=== PATIENT | female | born 1995 | race Caucasian/White ===

== ENCOUNTER 2016-07-05 14:56 | Emergency (ER) | payer OTHER ==
[2016-07-05 15:01] VITALS: BP 118/73; PULSE 75; TEMP 97.7; BMI 23.8
[2016-07-05] MEDS ORDERED: CYCLOBENZAPRINE HCL 10 MG TABLET (FP) PO ONE (16:05)
[2016-07-05] MEDS ORDERED: IBUPROFEN 400 MG TABLET (FP) PO ONE ×2 (16:05→16:06)
[2016-07-05] MEDS ORDERED: CYCLOBENZAPRINE HCL 10 MG TABLET (FP) ONE (16:06)
--- NOTE | 2016-07-05 16:12 | PDOC ---
History of Present Illness - General Chief Complaint: Pain Stated Complaint: PAIN Time Seen by Provider: 07/05/16 15:17 History Source: Patient Exam Limitations: No Limitations - History of Present Illness Initial Comments: 07/05/16 16:06 Chief complaint: Cough, nasal congestion, and lower back pain History of present illness: Pt. is a 21-year-old female with h/o asthma here today with report of having a productive cough greenish sputum 1 month and nasal congestion. Patient also reports having lower back pain intermittent times one month. Patient denies any radiation of pain down the legs or any numbness of legs or any incontinency or any saddle anesthesia. Patient denies any shortness of breath or any wheezing. Patient denies any fever. Patient reports that she started on Zyrtec and a Z-Leeroy 3 days ago however she continues to have a cough and slight nasal congestion. Patient has not been taking anything for her lower back pain. Patient denies any heavy lifting or injury to her lower back. SHe denies any recent travel. Patient reports that back pain currently as a 5 out of 10 with movement. She denies any wheezing or shortness of breath. She reports having an IUD however did not have her menstrual cycle in May. 07/05/16 16:12 07/05/16 16:15 Timing/Duration: intermittent (one month ) Severity: moderate Associated Symptoms: reports: cough (productive greenish sputa), other (nasal congestion, lower back pain ). denies: fever/chills Past History - Past Medical History Allergies/Adverse Reactions: Allergies Allergy/AdvReac Type Severity Reaction Status Date / Time blueberry Allergy Verified 07/05/16 15:01 Home Medications: Ambulatory Orders Cyclobenzaprine HCl [Flexeril -] 10 mg PO Q8H PRN #20 tablet MDD 3 07/05/16 Guaifenesin Dm [Mucinex Dm -] 1 tab PO Q12H PRN #10 tab.er.12h 07/05/16 Asthma: Yes - Reproductive History (#): 0 Para: 0 - Psycho/Social/Smoking Cessation Hx Anxiety: No Suicidal Ideation: No Smoking History: Never smoked Information on smoking cessation initiated: No Hx Alcohol Use: No Drug/Substance Use Hx: No Substance Use Type: None Review of Systems - Review of Systems Able to Perform ROS?: Yes Constitutional: No: Symptoms Reported HEENTM: Yes: Nose Congestion Respiratory: Yes: Productive cough (greenish for one month). No: Shortness of Breath, SOB with Exertion, SOB at Rest, Wheezing Cardiac (ROS): No: Symptoms Reported ABD/GI: No: Symptoms Reported Musculoskeletal: Yes: Back Pain (b/l lower back ) Integumentary: No: Symptoms Reported Neurological: No: Symptoms reported *Physical Exam - Vital Signs Last Vital Signs Temp Pulse Resp BP Pulse Ox 97.7 F 75 18 118/73 100 07/05/16 14:58 07/05/16 14:58 07/05/16 14:58 07/05/16 14:58 07/05/16 14:58 - Physical Exam General Appearance: Yes: Appropriately Dressed HEENT: positive: Nasal Congestion. negative: TMs Normal, Pharyngeal Erythema, Tonsillar Exudate, Tonsillar Erythema, Rhinorrhea Neck: negative: Lymphadenopathy (R), Lymphadenopathy (L) Respiratory/Chest: positive: Lungs Clear, Normal Breath Sounds. negative: Chest Tender, Respiratory Distress Cardiovascular: positive: Regular Rhythm, Regular Rate, S1, S2 Musculoskeletal: positive: Normal Inspection, Muscle Spasm (paraspinal muscles b /l lumbar with tenderness), Other. negative: CVA Tenderness, CVA Tenderness (R) , CVA Tenderness (L), Decreased Range of Motion Integumentary: positive: Normal Color Neurologic: positive: Alert, Normal Response, Motor Strength 5/5 (legs ), Respond to painful stimul, Responsive. negative: Sensory Deficit (legs ) ED Treatment Course - ADDITIONAL ORDERS Additional order review: Laboratory Results 07/05/16 15:38 Urine HCG, Qual Negative Medical Decision Making - Medical Decision Making 07/05/16 16:09 07/05/16 16:16 Pt. is a 21-year-old female with h/o asthma here today with report of having a productive cough greenish sputum 1 month and nasal congestion. Patient also reports having lower back pain intermittent times one month. Patient denies any radiation of pain down the legs or any numbness of legs or any incontinency or any saddle anesthesia. Patient denies any shortness of breath or any wheezing. Patient denies any fever. Patient reports that she started on Zyrtec and a Z- Leeroy 3 days ago however she continues to have a cough and slight nasal congestion. Patient has not been taking anything for her lower back pain. Patient denies any heavy lifting or injury to her lower back. SHe denies any recent travel. Patient reports that back pain currently as a 5 out of 10 with movement. She denies any wheezing or shortness of breath. She reports having an IUD however did not have her menstrual cycle in May. Bronchitis Nasal congestion Lower back pain with muscle spasm Plan: Urine hCG negative Ibuprofen 400 mg by mouth now than every 6 hrs prn pain Flexeril 10 mg by mouth now then every 8 hours as needed for muscle spasm mucinex DM 1 tab q12 hrs prn pain # 10 tabs 07/05/16 20:09 *DC/Admit/Observation/Transfer Diagnosis at time of Disposition: Bronchitis, Nasal congestion, Back pain, lumbosacral - Discharge Dispostion Disposition: HOME Condition at time of disposition: Stable - Prescriptions Prescriptions: Cyclobenzaprine HCl [Flexeril -] 10 mg PO Q8H PRN #20 tablet MDD 3 PRN Reason: Muscle Spasms Guaifenesin Dm [Mucinex Dm -] 1 tab PO Q12H PRN #10 tab.er.12h PRN Reason: Cough - Referrals Referrals: Graciela Maxwell NP [Primary Care Provider] - - Patient Instructions Additional Instructions: Finish medication as ordered previously by your primary care provider Take ibuprofen as directed by carpenter refrigerator as needed for pain Return to emergency room if any radiation of pain down the legs or any numbness of legs or groin or any shortness of breath or difficulty breathing Follow-up with your primary care provider within the next few days patient voiced understanding of discharge instructions and all questions were answered
== END 2016-07-05 16:38 | disposition home or self-care (01) ==
LOC: JERFT 14:56
DX: J20.9 Acute bronchitis, unspecified (principal); M54.5 Low back pain
CPT/HCPCS: 84703; 99281-25

== ENCOUNTER 2017-01-18 17:22 | Emergency (ER) | payer OTHER ==
[2017-01-18 17:25] VITALS: BP 105/57; PULSE 87; TEMP 98; BMI 26.4
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
== END 2017-01-18 17:52 | disposition home or self-care (01) ==
LOC: JERFT 17:22
DX: S80.861A Insect bite (nonvenomous), right lower leg, initial encounter (principal); S80.862A Insect bite (nonvenomous), left lower leg, initial encounter; W57.XXXA Bitten or stung by nonvenomous insect and other nonvenomous arthropods, initial encounter; Y93.89 Activity, other specified; Y92.003 Bedroom of unspecified non-institutional (private) residence as the place of occurrence of the external cause
CPT/HCPCS: 99281-25

== ENCOUNTER 2017-09-22 11:27 | Emergency (ER) | payer OTHER ==
[2017-09-22 11:59] VITALS: BP 135/84; PULSE 83; TEMP 97.7; BMI 28.3
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
[2017-09-23 08:12] LABS: HBsAG SCREEN Negative (Negative); HEPATITIS B CORE ANTIBODY Negative (Negative)
== END 2017-09-22 13:17 | disposition home or self-care (01) ==
LOC: JERFT 11:27
DX: Z77.21 Contact with and (suspected) exposure to potentially hazardous body fluids (principal); W46.1XXA Contact with contaminated hypodermic needle, initial encounter; Y93.89 Activity, other specified; Y92.9 Unspecified place or not applicable; Y99.0 Civilian activity done for income or pay
CPT/HCPCS: 36415; 86704; 87340; 87389; 99281-25

== ENCOUNTER 2019-08-02 15:03 | Emergency (ER) | payer SELFPAY ==
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
[2019-08-02 15:29] VITALS: BP 109/74; PULSE 75; TEMP 99; BMI 28.3
[2019-08-02] MEDS ORDERED: FLUORESCEIN NA 1 EA STRIP ONE (16:43)
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
== END 2019-08-02 19:37 | disposition home or self-care (01) ==
LOC: JER 15:03
DX: S05.01XA Injury of conjunctiva and corneal abrasion without foreign body, right eye, initial encounter (principal); Z91.018 Allergy to other foods
CPT/HCPCS: 70450-TC; 70486-TC; 84703; 99284-25